=== PATIENT | female | born 1985 | race Caucasian/White ===

== ENCOUNTER 2016-11-04 07:06 | Day surgery (SDC) | payer OTHER ==
--- NOTE | 2016-11-01 09:35 | HISTORY AND PHYSICAL E ---
History and Physical NAME: DAI MEYER : 1985 AGE: 31Y ADMITTED: 11/04/2016 ROOM: CHIEF COMPLAINT: Rectal bleeding/anal fissure. SOCIAL HISTORY: . She does not smoke, drinks rarely. PAST SURGICAL HISTORY: Negative. REVIEW OF SYSTEMS: CARDIAC: Negative. RESPIRATORY: Negative. ENDOCRINE: Negative. GASTROINTESTINAL: Rectal bleeding, rectal itching. ONCOLOGY/HEMATOLOGY: Negative. NEUROPSYCHIATRIC: Mild distress. FAMILY HISTORY: Father alive. Mother is alive, has heart disease. PHYSICAL EXAMINATION: VITAL SIGNS: Age 31. Blood pressure 100/60, pulse 80, respirations 18, and temperature is 98. HEAD, EYES, EARS, NOSE, THROAT: Normal. NECK: Supple. LUNGS: Clear. ABDOMEN: Soft. NEUROLOGIC: Negative. MEDICATIONS: The patient is on combination nifedipine with lidocaine. The patient takes Metamucil stool softener. CONCLUSION: Rectal bleeding and itching. PLAN: Colonoscopy scheduled for colon in the OR on 11/04/2016. DICTATING PHYSICIAN: RENETTA PARKER M.D. [id number] PHY#: [id number] ID: [id number] JOB#: [id number] ACCT: [id number] cc:RENETTA PARKER M.D. >
[2016-11-02 11:28] LABS: HEMATOCRIT 36.9 % (36.0-47.0); HEMOGLOBIN 12.6 g/dL (12.0-15.5); HGB HCT DIFFERENCE 0.9; MEAN CORPUSCULAR HEMOGLOBIN 30.6 pg (27.0-33.4); MEAN CORPUSCULAR HGB CONC 34.1 g/dL (32.0-36.0); MEAN CORPUSCULAR VOLUME 90 fl (80-97); RED BLOOD COUNT 4.11 10^6/uL (3.72-5.28); WHITE BLOOD COUNT 5.5 10^3/uL (4.0-10.5)
[~2016-11-04 07:06] MED LIST: LACTATED RINGERS 1000 ML IV PRN; LIDOCAINE 0.5% INJ-PF (5 MG/ML) 50 ML SDV SUBCUT PRN
[2016-11-04] MEDS ORDERED: GLUCAGON,HUMAN RECOMB 1 MG INJ ONE (09:26)
[2016-11-04] MEDS ORDERED: LIDOCAINE 2% JELLY 30 ML TUBE ONE (09:26)
[2016-11-04] MEDS ORDERED: PROPOFOL INJ 200 MG/20 ML VIAL IV ONE (09:30)
[2016-11-04] MEDS ORDERED: MIDAZOLAM 2 MG/2 ML INJ ONE (09:30)
[2016-11-04] MEDS ORDERED: FENTANYL CITRATE INJ/PF 100 MCG/2 ML AMPUL IV PRN ×3 (09:51)
[2016-11-04] MEDS ORDERED: MORPHINE SULFATE 10 MG/ML INJ IV PRN (09:51)
[2016-11-04] MEDS ORDERED: PROMETHAZINE HCL INJ 25 MG/1 ML VIAL IV PRN ×2 (09:51)
[2016-11-04] MEDS ORDERED: MEPERIDINE HCL/PF INJ 25 MG/1 ML DISP.SYRIN IV PRN (09:51)
[2016-11-04] MEDS ORDERED: OXYCODONE-ACETAMINOPHEN 5-325 MG TABLET PO PRN ×2 (09:51)
[2016-11-04] MEDS ORDERED: DIPHENHYDRAMINE HCL 50 MG/ML VIAL IV PRN (09:51)
[2016-11-04] MEDS ORDERED: LIDOCAINE 2% VISCOUS SOLN 20 ML UDCUP PO PRN (10:34)
[2016-11-04] MEDS ORDERED: ACETAMINOPHEN 325 MG TABLET PO PRN (10:34)
[2016-11-04] MEDS ORDERED: SIMETHICONE 80 MG TAB.CHEW PO PRN ×2 (10:35)
[2016-11-04] MEDS ORDERED: RINGERS SOLUTION,LACTATED 1,000 ML IV PRN (10:37)
--- NOTE | 2016-11-04 11:06 | OPERATIVE REPORT E ---
Operative Report NAME: DAI MEYER : 1985 AGE: 31Y DATE OF SURGERY: ROOM: PREOPERATIVE DIAGNOSIS: A 31-year-old female with rectal bleeding. POSTOPERATIVE DIAGNOSES: 1. Fissure in ano. 2. Mild external hemorrhoids. OPERATION: Colonoscopy. SURGEON: RENETTA PARKER M.D. ANESTHESIA: Anesthesia done in the operating room with anesthesia standby. TISSUE REMOVED OR ALTERED: None. PROCEDURE: RECTAL EXAM: Shows small anal fissure, posterior. Mild external hemorrhoids, no bleeding. Rectosigmoid mucosa normal. Descending colon, transverse colon, and ascending colon normal. Cecum shows the orifice of the appendix. No evidence of Crohn's disease. Scope withdrawn from cecum, ascending, transverse, descending, sigmoid all the way to the rectum. Patient tolerated the procedure well and discharged to her home in stable condition. CONCLUSION: 1. Small anal fissure, posterior. 2. Mild external hemorrhoids, small. PLAN: 1. Continue conservative therapy. No evidence of inflammatory bowel disease. 2. High-fiber diet. 3. Consider nitroglycerin. 4. If the patient continues to have pain . DICTATING PHYSICIAN: RENETTA PARKER M.D. [id number] PHY#: [id number] ID: [id number] JOB#: [id number] ACCT: [id number] cc:[facility], RENETTA PARKER M.D. >
--- NOTE | 2016-11-04 11:07 | DISCHARGE SUMMARY E ---
Discharge Summary NAME: DAI MEYER : 1985 AGE: 31Y ADMITTED: 11/04/2016 DISCHARGED: 11/04/2016 HOSPITAL COURSE: A 31-year-old young female presented with rectal bleeding, rectal pain, underwent colonoscopy today in the OR with anesthesia standby. The patient's colon shows no evidence of inflammatory bowel disease, no evidence of polyps, no bleeding. She does have mild external hemorrhoids and fissure in ano posterior. She responded to treatment as an outpatient with lidocaine and nifedipine combination. DISCHARGE PLAN: Continue high-fiber diet. Continue nifedipine/lidocaine treatment. Consider nitroglycerin ointments if there is recurrence. Patient discharged on high soft diet. Continue high-fiber Metamucil. Continue nifedipine/lidocaine combination. Patient to see us in the office in the next few days. DICTATING PHYSICIAN: RENETTA PARKER M.D. [id number] PHY#: [id number] ID: [id number] JOB#: [id number] ACCT: [id number] cc:[facility], RENETTA PARKER M.D. >
[2016-11-04 11:41] VITALS: BP 106/70
== END 2016-11-04 11:35 | disposition home or self-care (01) ==
LOC: OROUT 07:06
PROVIDERS: ATTEND Specialist
PROC: 0DJD8ZZ Inspection of Lower Intestinal Tract, Via Natural or Artificial Opening Endoscopic (ICD-10-PCS; principal; 2016-11-04 09:15)
DX: K60.2 Anal fissure, unspecified (principal); K64.4 Residual hemorrhoidal skin tags; J45.909 Unspecified asthma, uncomplicated
CPT/HCPCS: 45378; 36415; 85027; 81025; J2250; J2704; 810; J1610